=== PATIENT | male | born 1940 | race African-American/Black ===

== ENCOUNTER 2022-05-19 22:03 | Emergency (ER) | payer OTHER ==
[~2022-05-19] VITALS: Ht 182.9 cm; Wt 85.0 kg
[2022-05-19] MEDS ORDERED: SODIUM CHLORIDE 0.9% 1,000 ML IV ONE (22:30)
[2022-05-19 23:54] LABS: CHLORIDE 105 mEq/L (98-107)
[2022-05-20 00:01] LABS: BASOPHILS % 0.7 % (0.0-2.0); EOSINOPHILS % 4.7 % (0.0-5.0); HEMATOCRIT. 30.7 % (42.0-52.0); LYMPHOCYTES % 22.1 % (20.0-50.0); MEAN CORPUSCULAR HEMOGLOBIN 27.7 pg (28.0-32.0); MEAN CORPUSCULAR VOLUME 85.1 fL (80.0-94.0); MEAN PLATELET VOLUME 8.5 fl (7.4-10.4); MONOCYTES % 7.1 % (2.0-8.0); NEUTROPHILS % 65.4 % (40.0-76.0); PLATELET 174 x1000/uL (130-400); RED CELL DISTRIBUTION WIDTH 16.3 % (11.6-14.6)
[2022-05-20 01:37] LABS: CLARITY URINE CLEAR (CLEAR); COLOR URINE YELLOW (YELLOW); KETONES URINE TRACE (NEGATIVE); LEUKOCYTE ESTERASE URINE NEGATIVE (NEGATIVE); NITRITE URINE NEGATIVE (NEGATIVE); OCCULT BLOOD URINE TRACE (NEGATIVE); PH URINE 5.5 (4.5-8.0); PROTEIN URINE NEGATIVE (NEGATIVE); UROBILINOGEN URINE 0.2 E.U./dL (0.2-1.0)
[2022-05-20] MEDS ORDERED: METHOCARBAMOL 500MG TABLET PO ONE (04:30)
[2022-05-20] MEDS ORDERED: AMLODIPINE 5MG TABLET PO ONE (10:45)
[2022-05-20 11:16] VITALS: BP 166/110
== END 2022-05-20 11:27 | disposition short-term general hospital (02) ==
LOC: ER 22:03
DX: S01.81XA Laceration without foreign body of other part of head, initial encounter (principal); D64.9 Anemia, unspecified; R55 Syncope and collapse; X58.XXXA Exposure to other specified factors, initial encounter; Y93.89 Activity, other specified; Y92.9 Unspecified place or not applicable
CPT/HCPCS: 36415; 70450; 71045; 80053; 81003; 83605; 83880; 84484; 85025; 87040; 93005; 96360; 99291; J7030